=== PATIENT | female | born 1985 | race African-American/Black ===

== ENCOUNTER 2020-02-20 04:51 | Day surgery (SDC) | payer BC, OTHER ==
[2020-02-19 16:05] VITALS: BMI 27.2
[2020-02-20] MEDS ORDERED: LIDOCAINE HCL 2% (20ML MULTI-DOSE VIAL) ONE (10:54)
[2020-02-20] MEDS ORDERED: DEXAMETHASONE SOD PHOSPHATE 4 MG/1 ML VIAL ONE ×3 (11:13→12:33)
[2020-02-20] MEDS ORDERED: MIDAZOLAM HCL 2 MG/2 ML SINGLE DOSE VIAL ONE (11:23)
[2020-02-20] MEDS ORDERED: ceFAZolin SODIUM 1 GM VIAL IVPB ONE (11:26)
[2020-02-20] MEDS ORDERED: BUPIVACAINE HCL/PF 0.5% (5 MG/ML) 30 ML VIAL IJ ONE (11:30)
[2020-02-20] MEDS ORDERED: LIDOCAINE HCL 2% (50ML VIAL) NR ONE (11:30)
[2020-02-20] MEDS ORDERED: PROPOFOL 20 ML ONE ×2 (11:50)
[2020-02-20] MEDS ORDERED: oxyCODONE HCL 5 MG TABLET PO PRN (12:02)
[2020-02-20] MEDS ORDERED: ONDANSETRON 4 MG/2 ML VIAL IVPUSH PRN (12:02)
[2020-02-20] MEDS ORDERED: LACTATED RINGERS SOLUTION 1,000 ML IV SCH (12:15)
[2020-02-20] MEDS ORDERED: ceFAZolin SODIUM 1 GM VIAL ONE (12:33)
[2020-02-20] MEDS ORDERED: ONDANSETRON 4 MG/2 ML VIAL ONE (12:33)
[2020-02-20] MEDS ORDERED: LIDOCAINE HCL/PF 2% SDV 5ML VIAL ONE (12:33)
[2020-02-20 14:57] VITALS: BP 104/66; PULSE 69; TEMP 97.8
--- NOTE | 2020-02-22 12:01 | PATH ---
Surgical Pathology Report Patient Name: JEET CORRIGAN [facility]. Rec. #: [id number] /Age/Gender: 1985 (Age: 35) / F Account: [id number] Location: [facility] SURGICAL Taken: 02/20/2020 Received: 02/20/2020 Reported: 02/22/2020 Physicians: Miguel Escalante DPM Specimen(s) Received A: RIGHT FIRST BUNION BONE AND CAPSULE B: FIFTH TOE Clinical History Right foot hallux valgus Final Diagnosis A. BONE AND CAPSULE, FOOT, FIRST, RIGHT, KIET BUNIECTOMY: BONE WITH DEGENERATIVE CHANGES AND FATTY MARROW. DENSE FIBROCONNECTIVE TISSUE CONSISTENT WITH CAPSULE. B. BONE, FIFTH TOE, KIET BUNIONECTOMY: BONE WITH FATTY MARROW. Electronically Signed Juani Seth M.D. Gross Description A. Received in formalin labeled "right first bunion bone and capsule" are 2 irregular fragments of white-love to yellow-love bone measuring 1.5 x 1 x 0.4 and 1 x 0.5 x 0.3 cm. An irregular fragment of white-love fibroconnective tissue measuring 2 x 0.3 x 0.4 cm is also received in the same container. The entire specimen is submitted after brief decalcification in one cassette. B. Received in formalin labeled "bone fifth toe" are 2 irregular fragments of yellow-love bone measuring 1.5 x 1 x 0.7 and 1 x 0.5 x 0.5 cm. The specimen is entirely submitted after decalcification in one cassette S/02/20/2020 san/02/20/2020
== END 2020-02-20 14:57 | disposition home or self-care (01) ==
LOC: JASU-SURG 04:51
PROVIDERS: ATTEND Podiatrist
PROC: 0QBN0ZZ Excision of Right Metatarsal, Open Approach (ICD-10-PCS; 2020-02-20)
PROC: 0QBQ0ZZ Excision of Right Toe Phalanx, Open Approach (ICD-10-PCS; principal; 2020-02-20 10:30)
DX: M20.11 Hallux valgus (acquired), right foot (principal); M21.611 Bunion of right foot; M20.41 Other hammer toe(s) (acquired), right foot
CPT/HCPCS: 73630-TC-RT-FY; 84703; 88304-TC; 88311-TC